=== PATIENT | male | born 1980 ===

== ENCOUNTER 2018-04-26 12:26 | Emergency (ER) | payer OTHER ==
[2018-04-26 12:32] VITALS: BMI 24.7
[2018-04-26 12:33] VITALS: BP 112/67; PULSE 73; RESP 18; TEMP 98.1; O2SAT 99
--- NOTE | 2018-04-26 12:58 | C.PDOC ---
History Of Present Illness 37-year-old male presents to the ED complaining of rectal itching for 6 months. States he initially started noticing some bumps to the area, which have become increasingly numerous. He denies having rectal pain or bleeding. No difficulty with passing bowel movements or bloody stool. Time Seen by Provider: 04/26/18 12:36 Chief Complaint (Nursing): Abnormal Skin Integrity History Per: Patient History/Exam Limitations: no limitations Onset/Duration Of Symptoms: Days Current Symptoms Are (Timing): Still Present Quality Of Symptoms: Itching Past Medical History Reviewed: Historical Data, Nursing Documentation, Vital Signs Vital Signs: Last Vital Signs Temp 98.1 F 04/26/18 12:32 Pulse 73 04/26/18 12:32 Resp 18 04/26/18 12:32 BP 112/67 04/26/18 12:32 Pulse Ox 99 04/26/18 12:32 Family History: States: No Known Family Hx - Social History Hx Alcohol Use: Yes Hx Substance Use: No - Immunization History Hx Tetanus Toxoid Vaccination: No Hx Influenza Vaccination: No Hx Pneumococcal Vaccination: No Review Of Systems Except As Marked, All Systems Reviewed And Found Negative. Constitutional: Negative for: Fever Gastrointestinal: Positive for: Other (rectal itching). Negative for: Diarrhea, Hematochezia, Rectal Pain Physical Exam - Physical Exam Appears: Non-toxic, No Acute Distress Skin: Warm, Dry, Other (clusters of cauliflower-shaped skin lesions to perirectal area) Head: Atraumatic, Normacephalic Eye(s): bilateral: Normal Inspection Extremity: Bilateral: Normal Color And Temperature, Normal ROM Neurological/Psych: Oriented x3, Normal Speech Gait: Steady ED Course And Treatment O2 Sat by Pulse Oximetry: 99 (RA) Pulse Ox Interpretation: Normal Medical Decision Making Medical Decision Making: Impression: Genital warts, HPV Plan: Patient remains afebrile alert and oriented with stable vital signs during ER evaluation. Patient will be discharged home with prescription for Podofilox. Patient given follow up instructions. Instructed to return to ER if symptoms worsen or new symptoms arise. Disposition Counseled Patient/Family Regarding: Need For Followup, Rx Given - Disposition Referrals: [facility] [Outside] Disposition: HOME/ ROUTINE Disposition Time: 12:55 Condition: GOOD Additional Instructions: Podofilox solution should be applied with a cotton swab, or podofilox gel with a finger, to visible genital warts twice a day for 3 days, followed by 4 days of no therapy. This cycle can be repeated, as necessary, for up to four cycles La solucin de Podofilox se debe aplicar con un hisopo de algodn o gel podofilox con un dedo sobre las verrugas genitales visibles dos veces al da delmy 3 altamirano, seguido de 4 altamirano sin tratamiento. Merry ciclo puede repetirse, segn sea necesario, delmy hasta cuatro ciclos Prescriptions: Podofilox 0.5% [Podofilox] 1 applic TOP BID 3 Days #1 hiram Instructions: Anogenital Warts (DC) Print Language: CITIZEN OF [place] - POA Present On Arrival: None - Clinical Impression Clinical Impression: Genital warts - PA / CONCESSIONS MANAGER / Resident Statement MD/DO has reviewed & agrees with the documentation as recorded. - Scribe Statement The provider has reviewed the documentation as recorded by the Scribe (Mckenna Mead) All medical record entries made by the Scribe were at my direction and personally dictated by me. I have reviewed the chart and agree that the record accurately reflects my personal performance of the history, physical exam, medical decision making, and the department course for this patient. I have also personally directed, reviewed, and agree with the discharge instructions and disposition.
== END 2018-04-26 13:06 | disposition home or self-care (01) ==
LOC: C.ER 12:26
DX: A63.0 Anogenital (venereal) warts (principal)